=== PATIENT | male | born 1940 | race African-American/Black ===

== ENCOUNTER 2018-09-04 02:29 | Emergency (ER) | payer MEDICAID, MEDICARE, OTHER ==
[~2018-09-04] VITALS: Ht 172.7 cm; Wt 89.0 kg
[~2018-09-04 02:29] MED LIST: BENAZEPRIL PO; NORVASC PO; OXYBUTYNIN PO; PRILOSEC PO
[2018-09-04] MEDS ORDERED: LORAZEPAM 1MG TABLET PO ONE (03:00)
[2018-09-04 06:30] VITALS: BP 142/84
== END 2018-09-04 06:51 | disposition home or self-care (01) ==
LOC: ER 02:29
DX: R33.9 Retention of urine, unspecified (principal); I48.91 Unspecified atrial fibrillation; E11.9 Type 2 diabetes mellitus without complications; I10 Essential (primary) hypertension; Z86.73 Personal history of transient ischemic attack (TIA), and cerebral infarction without residual deficits; Z90.49 Acquired absence of other specified parts of digestive tract
CPT/HCPCS: 51702; 99284; A4315